=== PATIENT | female | born 1980 | race Caucasian/White ===

== ENCOUNTER 2016-11-30 05:35 | Emergency (ER) | payer BC ==
--- NOTE | ~2016-11-30 | CR72 ---
[facility] A Service of [facility] & [facility] RADIOLOGY TEXT RESULTS PATIENT: JERRY MATHEWS LOCATION: [facility] : 84 UNIT #: [id number] AGE: [address]: Patrick Shea MD SEX: F ORDER DR: [id number] [facility] [address] [place], [place] [address] [id number] E MR#: [id number] Acc #: [id number] NAME: JERRY MATHEWS : 1980 SEX: F STUDY DATE/TIME: 11/30/2016 6:12 UNIT: [facility] ROOM: STUDY DESCRIPTION: CR Chest Single View Portable Attending Physician: Patrick Shea M.D. Ordering Physician: Patrick Shea M.D. Primary Care Physician: Brandi Yusuf M.D. MEDICAL IMAGING REPORT This report is preliminary unless electronic signature is present EXAM Portable chest, 11/30. INDICATION Chest pain and epigastric pain that started today. History of leukemia. COMPARISON 07/10/2005 FINDINGS A single AP portable view of the chest shows both lungs to be clear. The heart is normal in size. The mediastinal contour is normal. No significant bone abnormalities are seen. IMPRESSION Normal portable chest. Dictated by... Cristhian Gant Jr., M.D. THIS IS AN ELECTRONICALLY VERIFIED REPORT Cristhian Gant Jr., M.D. at 11/30/2016 4:09 PM [place]UST[place]/eric TD: 11/30/2016 09:21 JOB #: [id number] MEDICAL IMAGING REPORT Page 1 of 1 COPY
--- NOTE | ~2016-11-30 | EKG ---
PATIENT: JERRY MATHEWS UNIT #: [id number] Ventricular Rate: 83 BPM Atrial Rate: 83 BPM P-R Interval: 136 ms QRS Duration: 72 ms Q-T Interval: 392 ms QTC Calculation(Bezet): 460 ms P [place]: 27 degrees Calculated R [place]: 20 degrees Calculated T [place]: 21 degrees Diagnosis Line: Normal sinus rhythm Diagnosis Line: Septal infarct , age undetermined Diagnosis Line: Abnormal ECG Diagnosis Line: No previous ECGs available Diagnosis Line: Confirmed by SHARAD SANTANA MD ([id number]) on Diagnosis Line: 11/30/2016 8:03:02 AM INTERPRETING MD: ESTHER VARGAS
[~2016-11-30 05:35] MED LIST: ALBUTEROL17 GM; AMBIEN10 MG PO; ATIVAN PO; BENTYL10 MG PO; CLARITIN10 MG PO; DEPAKOTE; DIAZEPAM PO; EFFEXOR XR PO; FLEXERIL10 MG PO; FOLIC ACID PO; IMITREX PO; KEPPRA750 M1 PO; KEPPRA750 MG PO; MEDROL PO; MEDROL4 MG/DOSE- PO; ORTHO TRI-7 DAYSX 3; PRISTIQ100 MG PO; YASMIN 28 TABLE1 TAB PO; ZANAFLEX PO; ZANTAC PO
[2016-11-30 06:24] LABS: POC - CKMB <1.0 ng/mL (0.0-7.9); POC - TROPONIN <0.05 ng/mL (<=0.05)
[2016-11-30 06:29] LABS: BASOPHIL% 0.5 % (0-2.5); EOSINOPHIL# 0.1 X10e3 (0-0.7); HEMATOCRIT 36.7 % (35.0-45.0); HEMOGLOBIN 11.9 gm/dL (12.0-16.0); LYMPHOCYTE# 2.8 X10e3 (1.0-3.5); LYMPHOCYTE% 30.3 % (17.0-45.0); MEAN CELL VOLUME 84.8 FL (83-96); MEAN CORPUSCULAR HEMOGLOBIN 27.4 PG (28-34); MEAN CORPUSCULAR HGB CONC 32.3 g/dL (30-36); MEAN PLATELET VOLUME 9.2 FL (6.5-11.5); MONOCYTE# 0.8 X10e3 (0-1.0); MONOCYTE% 8.7 % (3.0-12.0); NEUTROPHIL# 5.4 X10e3 (1.5-7.1); NEUTROPHIL% 59.5 % (40-75); PLATELET COUNT 182 X10e3 (140-420); RED BLOOD COUNT 4.33 X10e (3.90-5.30); RED CELL DISTRIBUTION WIDTH 13.9 % (11.0-15.5); WHITE BLOOD COUNT 9.1 X10e3 (4.0-10.5)
[2016-11-30 06:31] LABS: DIFF IND NO
[2016-11-30 06:33] LABS: INR 0.9; PARTIAL THROMBOPLASTIN TIME 24.5 SECONDS (23.5-31.3); PROTHROMBIN TIME (PATIENT) 10.1 SECONDS (10.0-11.7)
[2016-11-30 06:59] LABS: ALBUMIN SERUM 3.8 g/dL (3.5-5.0); BILIRUBIN, DIRECT 0.1 mg/dL (0.0-0.2); BILIRUBIN,INDIRECT 0.6 mg/dL (0.0-0.9); BILIRUBIN,TOTAL 0.7 mg/dL (0.2-2.0); CALCIUM SERUM 9.1 mg/dL (8.4-10.2); CREATININE SERUM 0.8 mg/dL (0.6-1.4); GLOM FILT RATE Estimated 96.3 mL/min (>60); POTASSIUM 4.3 mmol/L (3.5-5.1); PROTEIN TOTAL SERUM 6.7 g/dL (6.0-8.3)
[2016-11-30 08:31] LABS: POC - CKMB <1.0 ng/mL (0.0-7.9); POC - TROPONIN <0.05 ng/mL (<=0.05)
== END 2016-11-30 09:17 | disposition home or self-care (01) ==
LOC: CED 05:35
PROVIDERS: Emergency Medicine
DX: R10.13 Epigastric pain (principal); Z91.041 Radiographic dye allergy status; K21.9 Gastro-esophageal reflux disease without esophagitis; Z88.8 Allergy status to other drugs, medicaments and biological substances
CPT/HCPCS: 36415; 71010; 80048; 80076; 82553; 83690; 84484; 84703; 85025; 85610; 85730; 93005; 99284